=== PATIENT | female | born 1985 ===

== ENCOUNTER 2016-10-31 23:01 | Emergency (ER) | payer MEDICAID ==
--- NOTE | 2016-11-01 00:17 | C.PDOC ---
History Of Present Illness Patient is a 31 year old female who presents to the ER with a complaint of bilateral lower extremity pain and swelling. Patient describes the pain as a burning sensation. Patient reports going to see her PMD who prescribed her a diuretic, however, the swelling and pain persists. Denies fever, chills, SOB or injury. Time Seen by Provider: 11/01/16 00:05 Chief Complaint (Nursing): Medical Clearance History Per: Patient History/Exam Limitations: no limitations Onset/Duration Of Symptoms: Days Current Symptoms Are (Timing): Still Present Reports Recently: Treated By A Physician (PMD) Recent travel outside of the [place]: No Past Medical History Reviewed: Historical Data, Nursing Documentation, Vital Signs Vital Signs: Last Vital Signs Temp 98.1 F 10/31/16 23:21 Pulse 82 10/31/16 23:21 Resp 20 10/31/16 23:21 BP 110/75 10/31/16 23:21 Pulse Ox 97 11/01/16 00:28 - Medical History PMH: No Chronic Diseases Surgical History: No Surg Hx Family History: States: Unknown Family Hx - Social History Hx Alcohol Use: No Hx Substance Use: No - Immunization History Hx Tetanus Toxoid Vaccination: No Hx Influenza Vaccination: No Hx Pneumococcal Vaccination: No Review Of Systems Constitutional: Negative for: Fever, Chills Respiratory: Negative for: Shortness of Breath Musculoskeletal: Positive for: Leg Pain (Bilaterally), Foot Pain (Bilaterally) Physical Exam - Physical Exam Appears: Well, Non-toxic, No Acute Distress Skin: Normal Color, Warm, Dry Head: Atraumatic, Normacephalic Eye(s): bilateral: Normal Inspection, EOMI Oral Mucosa: Moist Chest: Symmetrical, No Tenderness Cardiovascular: Rhythm Regular, No Murmur Respiratory: Normal Breath Sounds, No Rales, No Rhonchi, No Wheezing Gastrointestinal/Abdominal: Soft, No Tenderness Extremity: No Deformity (Bilaterally, lower extremities), Swelling (Bilaterally , lower extremities), No Other (Redness bilaterally, lower extremities) Neurological/Psych: Oriented x3, Normal Speech, Normal Cognition ED Course And Treatment - Laboratory Results Result Diagrams: 11/01/16 00:36 11/01/16 00:36 O2 Sat by Pulse Oximetry: 97 (Room air) Pulse Ox Interpretation: Normal Progress Note: Blood work ordered. Toradol administered. Disposition Counseled Patient/Family Regarding: Diagnosis - Disposition Referrals: [facility] [Outside] Disposition: HOME/ ROUTINE Disposition Time: 01:08 Condition: STABLE Prescriptions: Naproxen [Naprosyn Tab] 375 mg PO TIDPC #20 tab Instructions: Leg Pain (ED), Arthralgia (ED) - POA Present On Arrival: None - Clinical Impression Clinical Impression: Leg pain, bilateral - Scribe Statement The provider has reviewed the documentation as recorded by the Scribashley Lima All medical record entries made by the Bertibashley were at my direction and personally dictated by me. I have reviewed the chart and agree that the record accurately reflects my personal performance of the history, physical exam, medical decision making, and the department course for this patient. I have also personally directed, reviewed, and agree with the discharge instructions and disposition.
[2016-11-01 00:39] LABS: BASO # 0.1 K/uL (0.0-0.2); BASO % 0.7 % (0.0-2.0); EOS # 0.1 K/uL (0.0-0.7); HEMATOCRIT 39.8 % (34.0-47.0); LYMPH # 2.7 K/uL (1.0-4.3); MEAN CELL VOLUME 92.5 fL (81.0-99.0); MEAN CORPUSCULAR HEMOGLOBIN 31.2 pg (27.0-31.0); MEAN CORPUSCULAR HGB CONC 33.7 g/dL (33.0-37.0); MEAN PLATELET VOLUME 8.8 fL (7.2-11.7); MONO # 0.5 K/uL (0.0-0.8); MONO % 6.6 % (0.0-10.0); RED CELL DISTRIBUTION WIDTH 12.7 % (11.5-14.5); WHITE BLOOD COUNT 6.8 K/uL (4.8-10.8)
[2016-11-01 00:48] LABS: CHLORIDE 108 mmol/L (98-107); SODIUM 138 mmol/L (132-148)
[2016-11-01 00:50] LABS: GFR AFRICAN-AMERICAN > 60
[2016-11-01 00:51] LABS: ALB/GLOB RATIO 1.3 (1.0-2.1); ALKALINE PHOSPHATASE 69 U/L (38-126); ALT/SGPT 18 U/L (9-52); AST/SGOT 18 U/L (14-36); BILIRUBIN,TOTAL 0.5 mg/dL (0.2-1.3); BLOOD UREA NITROGEN 14 mg/dL (7-17); CARBON DIOXIDE 20 mmol/L (22-30); GLUCOSE,RANDOM 114 mg/dL (65-105)
[2016-11-01 00:58] LABS: RBC URINE 3 /hpf (0-3); URINE BILIRUBIN NEGATIVE (NEGATIVE); URINE BLOOD NEGATIVE (NEGATIVE); URINE COLOR Yellow (YELLOW); URINE GLUCOSE (UA) NORMAL (Normal); URINE KETONE NEGATIVE (NEGATIVE); URINE LEUKOCYTE ESTERASE TRACE Leu/uL (Negative); URINE PROTEIN NEGATIVE (NEGATIVE); URINE UROBILINOGEN NORMAL mg/dL (0.2-1.0); WBC URINE 4 /hpf (0-5)
[2016-11-01 02:34] VITALS: BP 116/78; PULSE 66; RESP 18; TEMP 98.6; O2SAT 99
== END 2016-11-01 02:40 | disposition home or self-care (01) ==
LOC: C.ER 23:01
DX: M79.605 Pain in left leg (principal); M79.604 Pain in right leg
CPT/HCPCS: 80053; 81001; 85025; 96374; 99285; J1885